=== PATIENT | male | born 1970 | race American Indian/Alaskan Native ===

== ENCOUNTER 2017-11-10 13:19 | Inpatient (IN) | payer BC ==
[2017-11-10] MEDS ORDERED: Sodium Chloride 0.9% 1,000 ML IV ONE (15:52)
[2017-11-10] MEDS ORDERED: Sodium Chloride 0.9% 1,000 ML ONE (16:03)
[2017-11-10 16:31] LABS: URINE BACTERIA RARE (<OCC); URINE BILIRUBIN NEGATIVE (NEGATIVE); URINE BLOOD 2+ (NEGATIVE); URINE CLARITY Clear (Clear); URINE COLOR Yellow (YELLOW); URINE GLUCOSE (UA) NORMAL (Normal); URINE LEUKOCYTE ESTERASE NEG Leu/uL (Negative); URINE PROTEIN 1+ mg/dL (NEGATIVE)
[2017-11-10 16:31] LABS: BASO # 0.1 K/uL (0.0-0.2); BASO % 0.5 % (0.0-2.0); EOS % 0.2 % (0.0-4.0); HEMOGLOBIN 13.4 g/dL (12.0-18.0); LYMPH # 4.6 K/uL (1.0-4.3); LYMPH % 27.2 % (20.0-40.0); MEAN CELL VOLUME 87.8 fL (80.0-94.0); MEAN CORPUSCULAR HEMOGLOBIN 29.4 pg (27.0-31.0); MEAN CORPUSCULAR HGB CONC 33.5 g/dL (33.0-37.0); MEAN PLATELET VOLUME 7.6 fL (7.2-11.7); MONO # 1.4 K/uL (0.0-0.8); MONO % 8.1 % (0.0-10.0); NEUT # 10.7 K/uL (1.8-7.0); RBC 4.55 Mil/uL (4.40-5.90); RED CELL DISTRIBUTION WIDTH 13.2 % (11.5-14.5); WHITE BLOOD COUNT 16.7 K/uL (4.8-10.8)
--- NOTE | 2017-11-10 16:40 | CT ---
PROCEDURE: CT HEAD WITHOUT CONTRAST. HISTORY: seziures COMPARISON: None available. TECHNIQUE: Axial computed tomography images were obtained through the head/brain without intravenous contrast. Radiation dose: Total exam DLP = 829.24 mGy-cm. This CT exam was performed using one or more of the following dose reduction techniques: Automated exposure control, adjustment of the mA and/or kV according to patient size, and/or use of iterative reconstruction technique. FINDINGS: HEMORRHAGE: No intracranial hemorrhage. BRAIN: No mass effect or edema. No atrophy or chronic microvascular ischemic changes. VENTRICLES: Unremarkable. No hydrocephalus. CALVARIUM: Unremarkable. PARANASAL SINUSES: Mild chronic ethmoid sinusitis MASTOID AIR CELLS: Unremarkable as visualized. No inflammatory changes. OTHER FINDINGS: None. IMPRESSION: No intracranial mass, hemorrhage or evidence of acute infarct. Mild chronic ethmoid sinusitis. Otherwise unremarkable.
[2017-11-10 16:49] LABS: ALB/GLOB RATIO 0.7 (1.0-2.1); ALBUMIN 3.7 g/dL (3.5-5.0); ALT/SGPT 18 U/L (21-72); AST/SGOT 23 U/L (17-59); BLOOD UREA NITROGEN 14 mg/dL (9-20); CALCIUM 8.7 mg/dl (8.6-10.4); GFR AFRICAN-AMERICAN > 60; GFR NON-AFRICAN AMERICAN 55
--- NOTE | 2017-11-10 17:45 | C.PDOC ---
History Of Present Illness 47yo male, with history of HIV, seemingly well controlled reporting "recent numbers were good" and is compliant with his medications. He reports history of hypertension and states he is on a "water pill". Patient presents to the ED accompanied by his partner, states he has been "passing out" since 5 days ago and becomes unresponsive and urinates on himself. Partner states today, the patient passed out today as well and was unresponsive for a few minutes. No weakness, numbness, headache and offers no other medical complaints. PMD: Gamaliel Braswell Time Seen by Provider: 11/10/17 13:55 Chief Complaint (Nursing): Syncope History Per: Patient, Family History/Exam Limitations: no limitations Onset/Duration Of Symptoms: Days Past Medical History Reviewed: Historical Data, Nursing Documentation, Vital Signs Vital Signs: Last Vital Signs Temp 98.6 F 11/11/17 15:00 Pulse 62 11/11/17 15:00 Resp 20 11/11/17 15:00 BP 181/80 H 11/11/17 21:40 Pulse Ox 99 11/11/17 21:44 - Medical History PMH: HIV, HTN, Hypercholesterolemia Surgical History: No Surg Hx Family History: States: No Known Family Hx - Social History Hx Tobacco Use: Yes ( 1 pack per day) Hx Alcohol Use: Yes Hx Substance Use: Yes (cocaine, marijuana) - Immunization History Hx Tetanus Toxoid Vaccination: No Hx Influenza Vaccination: Yes Hx Pneumococcal Vaccination: No Review Of Systems Except As Marked, All Systems Reviewed And Found Negative. Constitutional: Negative for: Fever, Chills Eyes: Negative for: Pain, Vision Change, Conjunctivae Inflammation ENT: Negative for: Ear Pain, Ear Discharge, Nose Pain Cardiovascular: Negative for: Chest Pain, Palpitations, Orthopnea, Paroxysmal Noc. Dyspnea Respiratory: Negative for: Cough, Shortness of Breath, Hemoptysis Gastrointestinal: Negative for: Nausea, Vomiting, Abdominal Pain Genitourinary: Negative for: Dysuria, Frequency, Incontinence Musculoskeletal: Negative for: Neck Pain, Shoulder Pain, Arm Pain Skin: Negative for: Rash Neurological: Positive for: Seizures Physical Exam - Physical Exam Appears: Non-toxic, No Acute Distress Skin: Normal Color, Warm, Dry Head: Atraumatic, Normacephalic Eye(s): bilateral: Normal Inspection, PERRL, EOMI Ear(s): Bilateral: Normal Nose: Normal Oral Mucosa: Moist Tongue: Normal Appearing Lips: Normal Appearing Teeth: Normal Dentition Throat: Normal Neck: Normal ROM, Supple Chest: Symmetrical Cardiovascular: Rhythm Regular Respiratory: Normal Breath Sounds Gastrointestinal/Abdominal: Normal Exam, Soft, No Tenderness Back: Normal Inspection Extremity: Normal ROM, No Deformity Extremity: Bilateral: Atraumatic, No Pedal Edema, Normal Color And Temperature, Normal ROM Neurological/Psych: Oriented x3 Gait: Steady ED Course And Treatment - Laboratory Results Result Diagrams: 11/11/17 14:04 11/11/17 14:04 O2 Sat by Pulse Oximetry: 99 (RA) Pulse Ox Interpretation: Normal Medical Decision Making Medical Decision Making: Impression: New onset seizures Plan: -- Labs -- EKG -- IV Fluids -- CT head w/o contrast Disposition Counseled Patient/Family Regarding: Diagnosis - Disposition Disposition: HOSPITALIZED Disposition Time: 21:44 Condition: GOOD - Clinical Impression Clinical Impression: Seizure, Syncope - Scribe Statement The provider has reviewed the documentation as recorded by the Scribe (Amarilis Mckeon) Provider Attestation: All medical record entries made by the Evieibe were at my direction and personally dictated by me. I have reviewed the chart and agree that the record accurately reflects my personal performance of the history, physical exam, medical decision making, and the department course for this patient. I have also personally directed, reviewed, and agree with the discharge instructions and disposition.
--- NOTE | 2017-11-10 17:48 | RAD ---
HISTORY: Palpations COMPARISON: No prior. TECHNIQUE: Chest PA and lateral FINDINGS: LUNGS: No active pulmonary disease. PLEURA: No significant pleural effusion identified. No pneumothorax apparent. CARDIOVASCULAR: No radiographic findings to suggest acute or significant cardiovascular disease. OSSEOUS STRUCTURES: No significant abnormalities. VISUALIZED UPPER ABDOMEN: Normal. OTHER FINDINGS: None. IMPRESSION: No active disease.
--- NOTE | 2017-11-11 09:05 | CP.PCM.HP ---
History of Present Illness - History of Present Illness History of Present Illness: Chief Complaint: Syncope HPI: 47yo male, with history of HIV, seemingly well controlled reporting "recent numbers were good" and is compliant with his medications. He reports history of hypertension and states he is on a "water pill". Patient presents to the ED accompanied by his partner, states he has been "passing out" since 5 days ago and becomes unresponsive and urinates on himself. Partner states today, the patient passed out today as well and was unresponsive for a few minutes. No weakness, numbness, headache and offers no other medical complaints. Present on Admission - Present on Admission Any Indicators Present on Admission: No Past Patient History - Past Medical History & Family History Past Medical History?: Yes - Past Social History Smoking Status: Heavy Smoker > 10 Cigarettes Daily - CARDIAC Hx Cardiac Disorders: Yes Hx Hypercholesterolemia: Yes Hx Hypertension: Yes - PULMONARY Hx Respiratory Disorders: No - NEUROLOGICAL Hx Neurological Disorder: No - HEENT Hx HEENT Problems: Yes Other/Comment: Farsighted - RENAL Hx Chronic Kidney Disease: No Hx Dialysis: No Hx Kidney Stones: No Hx Neurogenic Bladder: No Hx Pyelonephritis: No Hx Renal (Kidney) Cancer: No Hx Renal Failure: No - ENDOCRINE/METABOLIC Hx Endocrine Disorders: No Hx Adrenal Cancer: No Hx Diabetes Insipidus: No Hx Diabetes Mellitus Type 1: No Hx Diabetes Mellitus Type 2: No Hx Hyperthyroidism: No Hx Hypothyroidism: No Hx Systemic Lupus Erythematosus: No - HEMATOLOGICAL/ONCOLOGICAL Hx Blood Disorders: Yes Hx Human Immunodeficiency Virus (HIV): Yes - INTEGUMENTARY Hx Dermatological Problems: No Hx Basil Cell: No Hx Latham: No Hx Cellulitis: No Hx Eczema: No Hx Melanoma: No Hx Psoriasis: No Hx Squamous Cell: No - MUSCULOSKELETAL/RHEUMATOLOGICAL Hx Musculoskeletal Disorders: No Hx Falls: Yes - GASTROINTESTINAL Hx Gastrointestinal Disorders: No - GENITOURINARY/GYNECOLOGICAL Hx Genitourinary Disorders: No - PSYCHIATRIC Hx Psychophysiologic Disorder: Yes Hx Substance Use: Yes (cocaine, marijuana) - SURGICAL HISTORY Hx Surgeries: No - ANESTHESIA Hx Anesthesia: No Hx Anesthesia Reactions: No Hx Malignant Hyperthermia: No Has any member of the family had a problem w/ anesthesia?: No Meds Allergies/Adverse Reactions: Allergies Allergy/AdvReac Type Severity Reaction Status Date / Time No Known Allergies Allergy Verified 11/10/17 14:08 Results - Vital Signs Recent Vital Signs: Last Vital Signs Temp 99.2 F 11/11/17 07:05 Pulse 75 11/11/17 07:05 Resp 20 11/11/17 07:05 BP 146/55 L 11/11/17 07:05 Pulse Ox 97 11/11/17 07:05 - Labs Result Diagrams: 11/10/17 16:28 11/10/17 16:28 Labs: Laboratory Results - last 24 hr 11/10/17 11/10/17 11/10/17 16:17 16:28 16:28 WBC 16.7 H RBC 4.55 Hgb 13.4 Hct 39.9 MCV 87.8 MCH 29.4 MCHC 33.5 RDW 13.2 Plt Count 384 MPV 7.6 Neut % (Auto) 64.0 Lymph % (Auto) 27.2 [place] % (Auto) 8.1 Eos % (Auto) 0.2 Baso % (Auto) 0.5 Neut # (Auto) 10.7 H Lymph # (Auto) 4.6 H [place] # (Auto) 1.4 H Eos # (Auto) 0.0 Baso # (Auto) 0.1 Sodium 137 Potassium 3.5 L Chloride 100 Carbon Dioxide 23 Anion Gap 17 BUN 14 Creatinine 1.4 Est GFR ( Amer) > 60 Est GFR (Non-Af Amer) 55 Random Glucose 122 H Calcium 8.7 Total Bilirubin 0.5 AST 23 ALT 18 L Alkaline Phosphatase 86 Total Protein 8.8 H Albumin 3.7 Globulin 5.1 H Albumin/Globulin Ratio 0.7 L Urine Color Yellow Urine Clarity Clear Urine pH 5.0 Ur Specific [place] 1.011 Urine Protein 1+ H Urine Glucose (UA) Normal Urine Ketones Negative Urine Blood 2+ H Urine Nitrate Negative Urine Bilirubin Negative Urine Urobilinogen 4.0 Ur Leukocyte Esterase Neg Urine WBC (Auto) 1 Urine RBC (Auto) 5 H Urine Bacteria Rare
[2017-11-11] MEDS ORDERED: Gadodiamide 287 MG/ML VIAL (15ML) IV ONE (10:32)
--- NOTE | 2017-11-11 11:47 | MRI ---
PROCEDURE: MRI BRAIN WITH AND WITHOUT CONTRAST HISTORY: seizures COMPARISON: Noncontrast head CT from 11/10/2017 TECHNIQUE: Multiplanar, multisequence MR images of the brain were obtained with and without intravenous contrast enhancement. High-resolution T1 and FLAIR coronal images were obtained through the temporal lobes. 14 mL Omniscan was injected intravenously. FINDINGS: HEMORRHAGE: None DWI: No evidence of an acute or early subacute infarction. BRAIN PARENCHYMA: There are scattered small T2/FLAIR hyperintense foci in the subcortical and periventricular white matter and ill-defined T2/FLAIR hyperintensity in the ismael. There are small T2/FLAIR hyperintense foci in the right cerebellar hemisphere. There is T1/T2 hyperintense signal in bilateral basal ganglia, worse on the left with corresponding increased magnetic susceptibility consistent with calcifications/mineralization. There is no mass, mass effect or abnormal extra-axial fluid collection ENHANCEMENT: No abnormal intracranial enhancement. VENTRICLES: There is mild global parenchymal volume loss and proportionate enlargement of the ventricles and cortical sulci. CRANIUM: There is heterogeneous T1 hypointense signal in the calvarium and visualized cervical vertebral bodies. ORBITS: Grossly unremarkable. PARANASAL SINUSES/MASTOIDS: There is mild mucosal thickening in the paranasal sinuses, worse in the right ethmoid air cells. There are trace mastoid effusions VASCULAR SYSTEM: Skull base flow voids intact. OTHER FINDINGS: None . IMPRESSION: 1. No acute intracranial abnormality. 2. Mild supratentorial white matter changes are strictly nonspecific. The differential considerations include early chronic microangiopathic changes, migraine headache effect, gliosis, vasculitis, Lyme disease and demyelinating disease including multiple sclerosis. Clinical correlation and follow-up is advised. 3. Mild global parenchymal volume loss, advanced for the patient's age. 4. Heterogeneous decreased T1 marrow signal which may represent red marrow reconversion and anemia of chronic disease. 5. Mild chronic sinusitis, worse in the right ethmoid air cells.
--- NOTE | 2017-11-11 12:10 | CARD ---
APPROVED REPORT EKG Measurement Heart [id number] <Conclusion> Normal sinus rhythm Voltage criteria for left ventricular hypertrophy Abnormal ECG
--- NOTE | 2017-11-11 13:47 | CP.PCM.CON ---
History of Present Illness - History of Present Illness History of Present Illness: Mr. Thrasher is a 47-year-old man with a past medical history of HTN, Shingles with left eye involvement and HIV, who states that since last , he has had 2 or 3 episodes of loss of consciousness, one of which was associated with urinary incontinence. He presented to the ED for evaluation. CT scan of the head was unremarkable. MRI of the brain showed chronic ischemic changes, especially in the left basal ganglia and some calcifications, possibly attributable to previous infections. Review of Systems - Review of Systems All systems: reviewed and no additional remarkable complaints except Past Patient History - Past Medical History & Family History Past Medical History?: Yes - Past Social History Smoking Status: Heavy Smoker > 10 Cigarettes Daily - CARDIAC Hx Cardiac Disorders: Yes Hx Hypercholesterolemia: Yes Hx Hypertension: Yes - PULMONARY Hx Respiratory Disorders: No - NEUROLOGICAL Hx Neurological Disorder: No - HEENT Hx HEENT Problems: Yes Other/Comment: Farsighted - RENAL Hx Chronic Kidney Disease: No Hx Dialysis: No Hx Kidney Stones: No Hx Neurogenic Bladder: No Hx Pyelonephritis: No Hx Renal (Kidney) Cancer: No Hx Renal Failure: No - ENDOCRINE/METABOLIC Hx Endocrine Disorders: No Hx Adrenal Cancer: No Hx Diabetes Insipidus: No Hx Diabetes Mellitus Type 1: No Hx Diabetes Mellitus Type 2: No Hx Hyperthyroidism: No Hx Hypothyroidism: No Hx Systemic Lupus Erythematosus: No - HEMATOLOGICAL/ONCOLOGICAL Hx Blood Disorders: Yes Hx Human Immunodeficiency Virus (HIV): Yes - INTEGUMENTARY Hx Dermatological Problems: No Hx Basil Cell: No Hx Latham: No Hx Cellulitis: No Hx Eczema: No Hx Melanoma: No Hx Psoriasis: No Hx Squamous Cell: No - MUSCULOSKELETAL/RHEUMATOLOGICAL Hx Musculoskeletal Disorders: No Hx Falls: Yes - GASTROINTESTINAL Hx Gastrointestinal Disorders: No - GENITOURINARY/GYNECOLOGICAL Hx Genitourinary Disorders: No - PSYCHIATRIC Hx Psychophysiologic Disorder: Yes Hx Substance Use: Yes (cocaine, marijuana) - SURGICAL HISTORY Hx Surgeries: No - ANESTHESIA Hx Anesthesia: No Hx Anesthesia Reactions: No Hx Malignant Hyperthermia: No Has any member of the family had a problem w/ anesthesia?: No Meds Allergies/Adverse Reactions: Allergies Allergy/AdvReac Type Severity Reaction Status Date / Time No Known Allergies Allergy Verified 11/10/17 14:08 - Medications Medications: Current Medications Pneumococcal Polyvalent Vaccine (Pneumovax 23 Vaccine) 0.5 ml IM .ONCE ONE Stop: 11/14/17 14:01 Physical Exam - Constitutional Appears: Well - Head Exam Head Exam: ATRAUMATIC, NORMAL INSPECTION, NORMOCEPHALIC - Eye Exam Eye Exam: EOMI, Normal appearance, PERRL - Neurological Exam Neurological exam: Alert, CN II-XII Intact, Normal Gait, Oriented x3, Reflexes Normal Results - Vital Signs Recent Vital Signs: Last Vital Signs Temp 99.2 F 11/11/17 07:05 Pulse 75 11/11/17 07:05 Resp 20 11/11/17 07:05 BP 146/55 L 11/11/17 07:05 Pulse Ox 97 11/11/17 07:05 - Labs Result Diagrams: 11/10/17 16:28 11/10/17 16:28 Labs: Laboratory Results - last 24 hr 11/10/17 11/10/17 11/10/17 16:17 16:28 16:28 WBC 16.7 H RBC 4.55 Hgb 13.4 Hct 39.9 MCV 87.8 MCH 29.4 MCHC 33.5 RDW 13.2 Plt Count 384 MPV 7.6 Neut % (Auto) 64.0 Lymph % (Auto) 27.2 [place] % (Auto) 8.1 Eos % (Auto) 0.2 Baso % (Auto) 0.5 Neut # (Auto) 10.7 H Lymph # (Auto) 4.6 H [place] # (Auto) 1.4 H Eos # (Auto) 0.0 Baso # (Auto) 0.1 Sodium 137 Potassium 3.5 L Chloride 100 Carbon Dioxide 23 Anion Gap 17 BUN 14 Creatinine 1.4 Est GFR ( Amer) > 60 Est GFR (Non-Af Amer) 55 Random Glucose 122 H Calcium 8.7 Total Bilirubin 0.5 AST 23 ALT 18 L Alkaline Phosphatase 86 Total Protein 8.8 H Albumin 3.7 Globulin 5.1 H Albumin/Globulin Ratio 0.7 L Urine Color Yellow Urine Clarity Clear Urine pH 5.0 Ur Specific [place] 1.011 Urine Protein 1+ H Urine Glucose (UA) Normal Urine Ketones Negative Urine Blood 2+ H Urine Nitrate Negative Urine Bilirubin Negative Urine Urobilinogen 4.0 Ur Leukocyte Esterase Neg Urine WBC (Auto) 1 Urine RBC (Auto) 5 H Urine Bacteria Rare Assessment & Plan (1) Syncopal episodes Assessment and Plan: The episodes of syncope withe subsequent urinary incontinence and confusion are concerning for seizure and the MRI demonstrating chronic ischemic changes and evidence of either iron deposits or calcifications is concerning for injury that could predispose to seizure. I recommend obtaining and EEG for 1 hour and starting aspirin 81 mg daily. Continue medical management and cardiac work-up. Thank you. Status: Acute Priority: High
[2017-11-11 14:16] LABS: BASO % 0.3 % (0.0-2.0); EOS # 0.1 K/uL (0.0-0.7); EOS % 0.4 % (0.0-4.0); HEMOGLOBIN 13.8 g/dL (12.0-18.0); LYMPH # 3.8 K/uL (1.0-4.3); LYMPH % 28.3 % (20.0-40.0); MEAN CELL VOLUME 88.6 fL (80.0-94.0); MEAN CORPUSCULAR HEMOGLOBIN 30.4 pg (27.0-31.0); MEAN CORPUSCULAR HGB CONC 34.3 g/dL (33.0-37.0); MEAN PLATELET VOLUME 8.3 fL (7.2-11.7); MONO # 1.1 K/uL (0.0-0.8); MONO % 8.2 % (0.0-10.0); NEUT # 8.4 K/uL (1.8-7.0); NEUT % 62.8 % (50.0-75.0); NRBC % 0.1 % (0.0-2.0); RBC 4.55 Mil/uL (4.40-5.90); RED CELL DISTRIBUTION WIDTH 13.3 % (11.5-14.5); WHITE BLOOD COUNT 13.4 K/uL (4.8-10.8)
[2017-11-11 14:48] LABS: BLOOD UREA NITROGEN 11 mg/dL (9-20); CALCIUM 8.7 mg/dl (8.6-10.4); GFR AFRICAN-AMERICAN > 60; GFR NON-AFRICAN AMERICAN 55
--- NOTE | 2017-11-11 16:09 | CP.PCM.PN ---
Subjective - Date & Time of Evaluation Date of Evaluation: 11/11/17 Time of Evaluation: 11:00 - Subjective Subjective: COFFEE ATTENDANT NOTES Objective - Vital Signs/Intake and Output Vital Signs (last 24 hours): Temp Pulse Resp BP Pulse Ox 99.2 F 75 20 146/55 L 97 11/11/17 07:05 11/11/17 07:05 11/11/17 07:05 11/11/17 07:05 11/11/17 07:05 Intake and Output: 11/11/17 11/11/17 06:59 18:59 Intake Total 400 Balance 400 - Medications Medications: Current Medications Aspirin (Aspirin Chewable) 81 mg PO DAILY [facility] Pneumococcal Polyvalent Vaccine (Pneumovax 23 Vaccine) 0.5 ml IM .ONCE ONE Stop: 11/14/17 14:01 - Labs Labs: 11/11/17 14:04 11/11/17 14:04 Assessment and Plan - Assessment and Plan (Free Text) Assessment: a/p 47 YR OLD MALE WITH PMHX OF HIV, ADMITTED s/p 2 or 3 episodes of loss of consciousness at home patient reported he takes norvir and prezista at home and verified with pharmacy - last refill 2016 - complaint with meds questionable? discussed with patient ref. medication , wants to continue to take medications , will restart antiviral therapy D/w Dr. Gomez , and agrees
[2017-11-11] MEDS: Bacitracin 500 Units/gm Oint Foilpak UD TOP SCH (17:46)
[2017-11-11] MEDS ORDERED: Nitroglycerin 2% Ointment Foilpak UD TOP PRN ×2 (21:24→21:55)
--- NOTE | 2017-11-12 01:08 | CP.PCM.PN ---
Subjective - Date & Time of Evaluation Date of Evaluation: 11/11/17 Time of Evaluation: 19:00 - Subjective Subjective: pt seen and examined, pt came in with h/o altred mental status, pt has Aids, pt is non complint not taking his HAART medication, he was reported to have 2 episodes of seizures witnessed by his partner Objective - Vital Signs/Intake and Output Vital Signs (last 24 hours): Temp Pulse Resp BP Pulse Ox 98.6 F 62 20 181/80 H 99 11/11/17 15:00 11/11/17 15:00 11/11/17 15:00 11/11/17 21:40 11/11/17 21:44 Intake and Output: 11/11/17 11/12/17 18:59 06:59 Intake Total 400 480 Balance 400 480 - Medications Medications: Current Medications Aspirin (Aspirin Chewable) 81 mg PO DAILY [facility] Bacitracin (Bacitracin) 1 ea TOP DAILY [facility] Last Admin: 11/11/17 17:46 Dose: 1 ea Darunavir (Prezista) 800 mg PO DAILY [facility] PRN Reason: Protocol Losartan Potassium (Cozaar) 50 mg PO DAILY [facility] Last Admin: 11/11/17 17:46 Dose: 50 mg Nitroglycerin (Nitro-Bid 2% Oint) 1 ea TOP Q6 PRN PRN Reason: Systolic Blood Pressure Pneumococcal Polyvalent Vaccine (Pneumovax 23 Vaccine) 0.5 ml IM .ONCE ONE Stop: 11/14/17 14:01 Ritonavir (Norvir) 100 mg PO BIDBS [facility] PRN Reason: Protocol Last Admin: 11/11/17 21:15 Dose: 100 mg - Labs Labs: 11/11/17 14:04 11/11/17 14:04 - Constitutional Appears: No Acute Distress - Head Exam Head Exam: ATRAUMATIC, NORMAL INSPECTION, NORMOCEPHALIC - Eye Exam Eye Exam: EOMI, Normal appearance, PERRL Pupil Exam: NORMAL ACCOMODATION, PERRL - Respiratory Exam Respiratory Exam: Clear to Ausculation Bilateral, NORMAL BREATHING PATTERN - Cardiovascular Exam Cardiovascular Exam: REGULAR RHYTHM, +S1, +S2. absent: Murmur - GI/Abdominal Exam GI & Abdominal Exam: Soft, Normal Bowel Sounds. absent: Tenderness - Rectal Exam Rectal Exam: Deferred Assessment and Plan (1) AIDS Status: Acute (2) Seizure Status: Acute (3) Syncopal episodes Status: Acute (4) Oropharyngeal candidiasis Status: Acute
--- NOTE | 2017-11-12 09:21 | CP.PCM.PN ---
Subjective - Date & Time of Evaluation Date of Evaluation: 11/12/17 Time of Evaluation: 09:20 - Subjective Subjective: Mr. Thrasher was seen and examined at the bedside. He is alert, oriented in all spheres. He denies any headache, dizziness, blurred vision,or any syncopal episodes overnight. He is able to follow simple commands and drinks caffeinated drinks all the time. He further states of not drinking water, eating foods high in sodium, educated the importance of eating healthy for his health issues. There was no untoward events overnight. Objective - Vital Signs/Intake and Output Vital Signs (last 24 hours): Temp Pulse Resp BP Pulse Ox 99.2 F 66 20 164/69 H 99 11/12/17 07:00 11/12/17 07:00 11/12/17 07:00 11/12/17 07:00 11/12/17 07:00 Intake and Output: 11/12/17 11/12/17 06:59 18:59 Intake Total 480 Balance 480 - Medications Medications: Current Medications Aspirin (Aspirin Chewable) 81 mg PO DAILY [facility] Bacitracin (Bacitracin) 1 ea TOP DAILY [facility] Last Admin: 11/11/17 17:46 Dose: 1 ea Darunavir (Prezista) 800 mg PO DAILY [facility] PRN Reason: Protocol Losartan Potassium (Cozaar) 50 mg PO DAILY [facility] Last Admin: 11/11/17 17:46 Dose: 50 mg Nitroglycerin (Nitro-Bid 2% Oint) 1 ea TOP Q6 PRN PRN Reason: Systolic Blood Pressure Pneumococcal Polyvalent Vaccine (Pneumovax 23 Vaccine) 0.5 ml IM .ONCE ONE Stop: 11/14/17 14:01 Ritonavir (Norvir) 100 mg PO BIDBS [facility] PRN Reason: Protocol Last Admin: 11/12/17 08:48 Dose: 100 mg - Labs Labs: 11/11/17 14:04 11/11/17 14:04 - Constitutional Appears: No Acute Distress - Head Exam Head Exam: NORMAL INSPECTION - Eye Exam Pupil Exam: PERRL - Neurological Exam Neurological Exam: Alert, Awake, Oriented x3 Neuro motor strength exam: Left Upper Extremity: 5, Right Upper Extremity: 5, Left Lower Extremity: 5, Right Lower Extremity: 5 Additional comments: Alert, oriented, follows all commands, sensation is intact. Assessment and Plan (1) Syncopal episodes Assessment & Plan: Case discussed with Dr. Dowd, continue all current medical regimen. Pending EEG. Recommend dietary consult. Status: Acute
[2017-11-12] MEDS: Bacitracin 500 Units/gm Oint Foilpak UD TOP SCH (10:19)
--- NOTE | 2017-11-12 15:09 | CARD ---
APPROVED REPORT EXAM: Two-dimensional and M-mode echocardiogram with Doppler and color Doppler. Other Information Quality : GoodRhythm : INDICATION Syncope AIDS,HIV,COCAINE ABUSE RISK FACTORS Hypertension Hyperlipidemia 2D DIMENSIONS IVSd1.2 (0.7-1.1cm)LVDd4.7 (3.9-5.9cm) PWd1.2 (0.7-1.1cm)LVDs3.0 (2.5-4.0cm) FS (%) 36.7 %LVEF (%)66.6 (>50%) M-Mode DIMENSIONS Left Atrium (MM)3.50 (2.5-4.0cm)Aortic Root3.34 (2.2-3.7cm) Aortic Cusp Exc.2.57 (1.5-2.0cm) Mitral Valve MV E Rgrkkmbz78.9cm/sMV A Jagxtisb44.0cm/sE/A ratio1.5 TDI E/Lateral E'0.0E/Medial E'0.0 Tricuspid Valve TR Peak [id number]/sTR Peak [id number] LEFT VENTRICLE The left ventricle is normal size. There is borderline concentric left ventricular hypertrophy. The Ejection Fraction is 60-65%. There is normal LV segmental wall motion. The left ventricular diastolic function is normal. RIGHT VENTRICLE The right ventricle is normal size. The right ventricular systolic function is normal. ATRIA The left atrium size is normal. The right atrium size is normal. The interatrial septum is intact with no evidence for an atrial septal defect. AORTIC VALVE The aortic valve is normal in structure. No aortic regurgitation is present. MITRAL VALVE The mitral valve is normal in structure. There is no mitral valve regurgitation noted. TRICUSPID VALVE The tricuspid valve is normal in structure. There is mild tricuspid regurgitation. Right ventricular systolic pressure is estimated at 31 mmHg. There is no pulmonary hypertension. PULMONIC VALVE The pulmonary valve is normal in structure. There is mild pulmonic valvular regurgitation. GREAT VESSELS The aortic root is normal in size. The IVC is normal in size and collapses >50% with inspiration. PERICARDIAL EFFUSION There is no pericardial effusion. <Conclusion> The left ventricle is normal size. There is borderline concentric left ventricular hypertrophy. The Ejection Fraction is 60-65%. The left ventricular diastolic function is normal. There is mild tricuspid regurgitation. Right ventricular systolic pressure is estimated at 31 mmHg. There is no pulmonary hypertension.
[2017-11-12 15:40] LABS: BARBITURATES, UR NEGATIVE (NEGATIVE); BENZODIAZEPINES, UR NEGATIVE (NEGATIVE); OPIATES, UR NEGATIVE (NEGATIVE)
[2017-11-12 15:54] LABS: % CD4 (T HELPER CELL) 4 Percent (30-61); % CD8 (SUPPRESSOR T CELL) 83 Percent (12-42); ABSOLUTE CD4 CELLS 154 Cells/mcL (490-1740); ABSOLUTE CD8 CELLS 3003 Cells/mcL (180-1170); ABSOLUTE LYMPHOCYTES 3618 Cells/mcL (850-3900); HELPER/SUPPRESSOR RATIO 0.05 Ratio (0.86-5.00)
[2017-11-12 16:06] LABS: PHENCYCLIDINE, UR POSITIVE (NEGATIVE)
--- NOTE | 2017-11-12 23:52 | CP.PCM.PN ---
Subjective - Date & Time of Evaluation Date of Evaluation: 11/12/17 Time of Evaluation: 18:40 - Subjective Subjective: Pt is seen and evaluated at bedside Objective - Vital Signs/Intake and Output Vital Signs (last 24 hours): Temp Pulse Resp BP Pulse Ox 99 F 69 20 171/73 H 98 11/12/17 15:00 11/12/17 15:00 11/12/17 15:00 11/12/17 15:00 11/12/17 15:00 Intake and Output: 11/12/17 11/13/17 18:59 06:59 Intake Total 320 Balance 320 - Medications Medications: Current Medications Aspirin (Aspirin Chewable) 81 mg PO DAILY [facility] Last Admin: 11/12/17 10:19 Dose: 81 mg Bacitracin (Bacitracin) 1 ea TOP DAILY [facility] Last Admin: 11/12/17 10:19 Dose: 1 ea Cyclobenzaprine HCl (Flexeril) 5 mg PO TID [facility] Last Admin: 11/12/17 22:11 Dose: 5 mg Darunavir (Prezista) 800 mg PO DAILY [facility] PRN Reason: Protocol Last Admin: 11/12/17 10:38 Dose: 800 mg Losartan Potassium (Cozaar) 50 mg PO DAILY [facility] Last Admin: 11/12/17 10:19 Dose: 50 mg Nitroglycerin (Nitro-Bid 2% Oint) 1 ea TOP Q6 PRN PRN Reason: Systolic Blood Pressure Pneumococcal Polyvalent Vaccine (Pneumovax 23 Vaccine) 0.5 ml IM .ONCE ONE Stop: 11/14/17 14:01 Ritonavir (Norvir) 100 mg PO BIDBS [facility] PRN Reason: Protocol Last Admin: 11/12/17 18:55 Dose: 100 mg - Labs Labs: 11/11/17 14:04 11/11/17 14:04 Assessment and Plan (1) AIDS Status: Acute (2) Seizure Status: Acute (3) Syncopal episodes Status: Acute (4) Oropharyngeal candidiasis Status: Acute
--- NOTE | 2017-11-13 07:06 | CP.PCM.PN ---
Subjective - Date & Time of Evaluation Date of Evaluation: 11/13/17 Time of Evaluation: 07:06 - Subjective Subjective: Mr. Thrasher was seen and examined at the bedside. He is alert, oriented in all spheres. He denies any headache, dizziness, blurred vision,or any syncopal episodes overnight. He is able to follow simple commands and drinks caffeinated drinks all the time. He further states of not drinking water, eating foods high in sodium, educated the importance of eating healthy for his health issues. He also states of ambulating with steady gait within his room. UDOA showed positive for phenyclidine and coccaine. Echocardiogram showed LV size normal, there is concentric LV hypertrophy, EF is 60-65%, LV diastolic function is normal, mild tricuspid regurgitation. RV systolic pressure is elevated approx. 31 mm HG. There is no pulmonary hypertension.There was no untoward events overnight. Objective - Vital Signs/Intake and Output Vital Signs (last 24 hours): Temp Pulse Resp BP Pulse Ox 98.6 F 83 20 156/71 H 96 11/13/17 04:00 11/13/17 04:00 11/13/17 04:00 11/12/17 23:50 11/13/17 04:00 - Medications Medications: Current Medications Aspirin (Aspirin Chewable) 81 mg PO DAILY [facility] Last Admin: 11/12/17 10:19 Dose: 81 mg Bacitracin (Bacitracin) 1 ea TOP DAILY [facility] Last Admin: 11/12/17 10:19 Dose: 1 ea Cyclobenzaprine HCl (Flexeril) 5 mg PO TID [facility] Last Admin: 11/12/17 22:11 Dose: 5 mg Darunavir (Prezista) 800 mg PO DAILY [facility] PRN Reason: Protocol Last Admin: 11/12/17 10:38 Dose: 800 mg Losartan Potassium (Cozaar) 50 mg PO DAILY [facility] Last Admin: 11/12/17 10:19 Dose: 50 mg Nitroglycerin (Nitro-Bid 2% Oint) 1 ea TOP Q6 PRN PRN Reason: Systolic Blood Pressure Pneumococcal Polyvalent Vaccine (Pneumovax 23 Vaccine) 0.5 ml IM .ONCE ONE Stop: 11/14/17 14:01 Ritonavir (Norvir) 100 mg PO BIDBS [facility] PRN Reason: Protocol Last Admin: 11/12/17 18:55 Dose: 100 mg - Labs Labs: 11/11/17 14:04 11/11/17 14:04 - Constitutional Appears: No Acute Distress - Head Exam Head Exam: NORMAL INSPECTION - Eye Exam Pupil Exam: PERRL - Neurological Exam Neurological Exam: Alert, Awake, Oriented x3 Neuro motor strength exam: Left Upper Extremity: 5, Right Upper Extremity: 5, Left Lower Extremity: 5, Right Lower Extremity: 5 Additional comments: Neurological unchanged from previous examination. Assessment and Plan (1) Syncopal episodes Assessment & Plan: Case discussed with Dr. Dowd, continue all current medical regimen. Pending EEG results. Recommend to hydration excluding caffeinated drinks, treat any electrolyte abnormalities. Status: Acute
[2017-11-13 07:31] LABS: HEMOGLOBIN 13.5 g/dL (12.0-18.0); MEAN CELL VOLUME 87.2 fL (80.0-94.0); MEAN CORPUSCULAR HEMOGLOBIN 29.9 pg (27.0-31.0); MEAN CORPUSCULAR HGB CONC 34.3 g/dL (33.0-37.0); MEAN PLATELET VOLUME 8.2 fL (7.2-11.7); RBC 4.53 Mil/uL (4.40-5.90)
[2017-11-13 08:20] VITALS: BP 155/63; PULSE 68; RESP 18; TEMP 98.1; O2SAT 97
[2017-11-13] MEDS: Bacitracin 500 Units/gm Oint Foilpak UD TOP SCH (10:04)
--- NOTE | 2017-11-13 14:47 | CP.PCM.PN ---
Subjective - Date & Time of Evaluation Date of Evaluation: 11/13/17 Time of Evaluation: 11:00 - Subjective Subjective: Patient seen today, denies any complaints , No overnight events reported by RN No seizure activity or mental status changes reported since admission Objective - Vital Signs/Intake and Output Vital Signs (last 24 hours): Temp Pulse Resp BP Pulse Ox 98.1 F 68 18 155/63 H 97 11/13/17 07:30 11/13/17 07:30 11/13/17 07:30 11/13/17 07:30 11/13/17 07:30 - Medications Medications: Current Medications Aspirin (Aspirin Chewable) 81 mg PO DAILY [facility] Last Admin: 11/13/17 10:04 Dose: 81 mg Bacitracin (Bacitracin) 1 ea TOP DAILY [facility] Last Admin: 11/13/17 10:04 Dose: 1 ea Cyclobenzaprine HCl (Flexeril) 5 mg PO TID [facility] Last Admin: 11/13/17 10:05 Dose: 5 mg Darunavir (Prezista) 800 mg PO DAILY [facility] PRN Reason: Protocol Last Admin: 11/13/17 10:04 Dose: 800 mg Losartan Potassium (Cozaar) 50 mg PO DAILY [facility] Last Admin: 11/13/17 10:04 Dose: 50 mg Nitroglycerin (Nitro-Bid 2% Oint) 1 ea TOP Q6 PRN PRN Reason: Systolic Blood Pressure Pneumococcal Polyvalent Vaccine (Pneumovax 23 Vaccine) 0.5 ml IM .ONCE ONE Stop: 11/14/17 14:01 Ritonavir (Norvir) 100 mg PO BIDBS [facility] PRN Reason: Protocol Last Admin: 11/13/17 08:31 Dose: 100 mg - Labs Labs: 11/13/17 07:13 11/11/17 14:04 Assessment and Plan - Assessment and Plan (Free Text) Assessment: A/P 47 yr old male with pmhx of HIV, HTN,admitted with Syncopal episode at home drug screen - + ve for amphitamines and coccaine EEG - DONE - to r/o seizure Dr. Dowd on board for neuro D/W Sandeep Fraser APN (neuro) EEG - normal , patient can be discharged home today from neurology standpoint D/w Dr. Gomez, stable for discharge home today and f/u with PMD Discussed with patient in details regarding all test results and LABS and instructed to f/u with his PMD for adjustment of his antiviral medications ( HAART) Discharge plan discussed with patient , who understands and agrees with plan
--- NOTE | 2017-11-14 05:19 | CP.PCM.DIS ---
Provider - Provider Date of Admission: 11/10/17 18:15 Attending physician: Con Gomez MD Time Spent in preparation of Discharge (in minutes): 45 Diagnosis - Discharge Diagnosis (1) AIDS Status: Acute (2) Seizure Status: Acute (3) Syncopal episodes Status: Acute Priority: High (4) Oropharyngeal candidiasis Status: Acute Hospital Course - Lab Results Lab Results: Most Recent Lab Values WBC 12.0 K/uL (4.8-10.8) H 11/13/17 07:13 RBC 4.53 Mil/uL (4.40-5.90) 11/13/17 07:13 Hgb 13.5 g/dL (12.0-18.0) 11/13/17 07:13 Hct 39.5 % (35.0-51.0) 11/13/17 07:13 MCV 87.2 fL (80.0-94.0) 11/13/17 07:13 MCH 29.9 pg (27.0-31.0) 11/13/17 07:13 MCHC 34.3 g/dL (33.0-37.0) 11/13/17 07:13 RDW 13.0 % (11.5-14.5) 11/13/17 07:13 Plt Count 409 K/uL (130-400) H 11/13/17 07:13 MPV 8.2 fL (7.2-11.7) 11/13/17 07:13 Neut % (Auto) 62.8 % (50.0-75.0) 11/11/17 14:04 Lymph % (Auto) 28.3 % (20.0-40.0) 11/11/17 14:04 [place] % (Auto) 8.2 % (0.0-10.0) 11/11/17 14:04 Eos % (Auto) 0.4 % (0.0-4.0) 11/11/17 14:04 Baso % (Auto) 0.3 % (0.0-2.0) 11/11/17 14:04 Neut # (Auto) 8.4 K/uL (1.8-7.0) H 11/11/17 14:04 Lymph # (Auto) 3.8 K/uL (1.0-4.3) 11/11/17 14:04 [place] # (Auto) 1.1 K/uL (0.0-0.8) H 11/11/17 14:04 Eos # (Auto) 0.1 K/uL (0.0-0.7) 11/11/17 14:04 Baso # (Auto) 0.0 K/uL (0.0-0.2) 11/11/17 14:04 Sodium 145 mmol/L (132-148) 11/11/17 14:04 Potassium 4.0 mmol/L (3.6-5.2) 11/11/17 14:04 Chloride 107 mmol/L (98-107) 11/11/17 14:04 Carbon Dioxide 24 mmol/L (22-30) 11/11/17 14:04 Anion Gap 17 (10-20) 11/11/17 14:04 BUN 11 mg/dL (9-20) 11/11/17 14:04 Creatinine 1.4 mg/dL (0.8-1.5) 11/11/17 14:04 Est GFR ( Amer) > 60 11/11/17 14:04 Est GFR (Non-Af Amer) 55 11/11/17 14:04 Random Glucose 91 mg/dL (75-110) 11/11/17 14:04 Calcium 8.7 mg/dl (8.6-10.4) 11/11/17 14:04 Total Bilirubin 0.5 mg/dL (0.2-1.3) 11/10/17 16:28 AST 23 U/L (17-59) 11/10/17 16:28 ALT 18 U/L (21-72) L 11/10/17 16:28 Alkaline Phosphatase 86 U/L (38-126) 11/10/17 16:28 Total Protein 8.8 g/dL (6.3-8.3) H 11/10/17 16:28 Albumin 3.7 g/dL (3.5-5.0) 11/10/17 16:28 Globulin 5.1 gm/dL (2.2-3.9) H 11/10/17 16:28 Albumin/Globulin Ratio 0.7 (1.0-2.1) L 11/10/17 16:28 Urine Color Yellow (YELLOW) 11/10/17 16:17 Urine Clarity Clear (Clear) 11/10/17 16:17 Urine pH 5.0 (5.0-8.0) 11/10/17 16:17 Ur Specific [place] 1.011 (1.003-1.030) 11/10/17 16:17 Urine Protein 1+ mg/dL (NEGATIVE) H 11/10/17 16:17 Urine Glucose (UA) Normal mg/dL (Normal) 11/10/17 16:17 Urine Ketones Negative mg/dL (NEGATIVE) 11/10/17 16:17 Urine Blood 2+ (NEGATIVE) H 11/10/17 16:17 Urine Nitrate Negative (NEGATIVE) 11/10/17 16:17 Urine Bilirubin Negative (NEGATIVE) 11/10/17 16:17 Urine Urobilinogen 4.0 mg/dL (0.2-1.0) 11/10/17 16:17 Ur Leukocyte Esterase Neg Nima/uL (Negative) 11/10/17 16:17 Urine WBC (Auto) 1 /hpf (0-5) 11/10/17 16:17 Urine RBC (Auto) 5 /hpf (0-3) H 11/10/17 16:17 Urine Bacteria Rare (<OCC) 11/10/17 16:17 Urine Opiates Screen Negative (NEGATIVE) 11/12/17 14:54 Urine Methadone Screen Negative (NEGATIVE) 11/12/17 14:54 Ur Barbiturates Screen Negative (NEGATIVE) 11/12/17 14:54 Ur Phencyclidine Scrn Positive (NEGATIVE) H 11/12/17 14:54 Ur Amphetamines Screen Negative (NEGATIVE) 11/12/17 14:54 U Benzodiazepines Scrn Negative (NEGATIVE) 11/12/17 14:54 U Oth Cocaine Metabols Positive (NEGATIVE) H 11/12/17 14:54 U Cannabinoids Screen Negative (NEGATIVE) 11/12/17 14:54 Absolute Lymphs (Flow) 3618 Cells/mcL (850-3900) 11/11/17 14:04 % CD4 Cells 4 Percent (30-61) L 11/11/17 14:04 Absolute CD4 Count 154 Cells/mcL (490-1740) L 11/11/17 14:04 T-Help/Suppress Ratio 0.05 Ratio (0.86-5.00) L 11/11/17 14:04 % CD8 Cells 83 Percent (12-42) H 11/11/17 14:04 Absolute CD8 Count 3003 Cells/mcL (180-1170) H 11/11/17 14:04 - Hospital Course Hospital Course: A/P 47 yr old male with pmhx of HIV, HTN,admitted with Syncopal episode at home drug screen - + ve for amphitamines and coccaine EEG - DONE - to r/o seizure Dr. Dowd on board for neuro D/W Sandeep Fraser APN (neuro) EEG - normal , patient can be discharged home today from neurology standpoint stable for discharge home today and f/u with PMD Discussed with patient in details regarding all test results and LABS and instructed to f/u with his PMD for adjustment of his antiviral medications ( HAART) Discharge plan discussed with patient , who understands and agrees with plan Discharge Exam - Head Exam Head Exam: NORMAL INSPECTION Discharge Plan - Follow Up Plan Condition: GOOD Disposition: HOME/ ROUTINE Instructions: Syncope (Fainting) (DC) Additional Instructions: Please f/u with your MD-Gamaliel Braswell, as early as possible- call and make appointment - (for adjustment of medications) resume all your home medications
--- NOTE | 2017-11-14 12:05 | EEG ---
DATE: Technical Information: Electrodes were placed according to the 10-[employer] electrode system by radiology technologist. Total of 23 electrodes (21 EEG and 2 EKG) were placed. EEG activity was digitally recorded referentially to P1/P2 or A1/A2 electrodes. Continuous monitoring with EEG was performed using digital analysis for spike detection. The [employer] spike and seizure detection algorithms were used for digital EEG analysis throughout the monitoring period to screen the EEG in real-time and saul the data file with pointers to electrographic seizures and interictal discharges. EEG was screened for electrographic seizures and interictal discharges by a technologist. Physician, epileptologist reviewed detections as well as extensive random samples and whole EEG study in detail. Digital EEG Analysis: Was carried out including FFT (Fast Fourier Transform), R2D2 (Rhythmicity Run Detection and Display), Relative Asymmetry Spectrogram, and voltage plot by the [employer]. The qualitative EEG analysis and the voltage plot mapping were used for detection of foci of paroxysmal and abnormal electrical cortical activity. General Description: Background Rhythm: There is a well-formed, 8-10 Hz posterior dominant rhythm that is reactive, symmetric, and attenuates with eye opening. There was a normal amount of frontal beta noted bilaterally. There is no sleep recorded. Activation Procedures: Photic stimulation: There is no driving noted. Hyperventilation: There is slowing noted that is self-remitted. Abnormal Activity: There are no focal epileptiform discharges noted. No clinical or subclinical seizures noted. Impression: This is a normal awake and drowsy EEG. Clinical correlation is required. Rosi Bentley MD
[2017-11-14] MEDS ORDERED: Pneumococcal 23-Valent Vaccine IM ONE (14:00)
== END 2017-11-13 15:30 | disposition home or self-care (01) | DRG 976 ==
LOC: C.ER 13:19 → C.9E 18:15 → C.6T 22:30
PROVIDERS: ADMIT Internal Medicine; ATTEND Internal Medicine
DX: B20 Human immunodeficiency virus [HIV] disease (principal); R56.9 Unspecified convulsions; R55 Syncope and collapse; B37.0 Candidal stomatitis; I10 Essential (primary) hypertension; R32 Unspecified urinary incontinence; F14.10 Cocaine abuse, uncomplicated; F15.90 Other stimulant use, unspecified, uncomplicated; F12.10 Cannabis abuse, uncomplicated; F17.210 Nicotine dependence, cigarettes, uncomplicated; E78.00 Pure hypercholesterolemia, unspecified